=== PATIENT | male | born 1940 | race Asian ===

== ENCOUNTER 2020-01-12 22:54 | Emergency (ER) | payer MEDICARE ==
[~2020-01-12] VITALS: Ht 167.6 cm; Wt 64.2 kg
[2020-01-12 22:55] VITALS: BP 159/99
[2020-01-12] MEDS ORDERED: AMLO25TA PO (23:06)
[2020-01-12] MEDS ORDERED: SINE25TA5 PO (23:06)
[2020-01-12] MEDS ORDERED: HYDR25TAB PO (23:06)
[2020-01-12] MEDS ORDERED: METO50TA7 PO (23:06)
[2020-01-12] MEDS ORDERED: LOSA100T50 PO (23:06)
--- NOTE | 2020-01-13 00:45 | REPVR ---
PROCEDURE INFORMATION: Exam: XR Abdomen, 1 View Exam date and time: 01/13/2020 12:31 AM Age: 79 years old Clinical indication: Constipation TECHNIQUE: Imaging protocol: XR of the abdomen. Views: Frontal supine view of the abdomen. 1 View. COMPARISON: No relevant prior studies available. FINDINGS: Gastrointestinal tract: There is a moderate amount of formed stool in the ascending colon and a mild amount of formed stool in the rest of the colon. No dilated loops of bowel are noted. Bones/joints: There is a slight dextroscoliosis of the lumbar spine. IMPRESSION: Moderate amount of formed stool in the ascending colon and a mild amount of formed stool in the remainder of the colon. No radiographic evidence for a bowel obstruction. Electronically signed by: Cornel Sepulveda On 01/13/2020 00:45:10 AM
[2020-01-13 01:07] LABS: BASO # 0.1 10^3/uL (0.0-0.2); BASO % 0.4 % (0.0-1.0); EOS % 0.3 % (0.0-3.0); HEMATOCRIT 47.6 % (42.0-52.0); HEMOGLOBIN 15.9 g/dl (13.5-17.5); LYMPH # 1.1 10^3/uL (1.5-5.0); LYMPH % 9.1 % (24.0-44.0); MEAN CORPUSCULAR HEMOGLOBIN 29.8 pg (27.0-33.0); MEAN CORPUSCULAR HGB CONC 33.4 g/dl (32.0-36.5); MEAN CORPUSCULAR VOLUME 89.1 fl (80.0-96.0); MONO # 0.5 10^3/uL (0.0-0.8); MONO % 4.3 % (0.0-5.0); NEUTROPHILS # 10.7 10^3/uL (1.5-8.5); NEUTROPHILS % 85.7 % (36.0-66.0); PLATELET COUNT, AUTOMATED 187 10^3/uL (150-450); RED BLOOD COUNT 5.34 10^6/uL (4.30-6.10); WHITE BLOOD COUNT 12.5 10^3/uL (4.0-10.0)
[2020-01-13 01:31] LABS: ALBUMIN 4.7 GM/DL (3.2-5.2); BILIRUBIN,DIRECT 0.3 MG/DL (0.0-0.2); BILIRUBIN,TOTAL 1.2 MG/DL (0.2-1.0); CALCIUM LEVEL 9.7 MG/DL (8.8-10.2); CREATININE FOR GFR 2.17 MG/DL (0.70-1.30); GLOMERULAR FILTRATION RATE 31.5 (>42); POTASSIUM SERUM 3.1 MEQ/L (3.5-5.1); TOTAL PROTEIN 8.8 GM/DL (6.4-8.2)
[2020-01-13] MEDS ORDERED: COLA100C5 PO (03:10)
[2020-01-13] MEDS ORDERED: MAGNESIUM CITRATE 300 ML BTL PO ONE (03:15)
== END 2020-01-13 03:33 | disposition home or self-care (01) ==
LOC: M ED 22:54
DX: K59.00 Constipation, unspecified (principal); N18.9 Chronic kidney disease, unspecified; I10 Essential (primary) hypertension; G20 Parkinson's disease; Z79.899 Other long term (current) drug therapy